=== PATIENT | female | born 1955 | race African-American/Black ===

== ENCOUNTER 2023-11-21 09:28 | Day surgery (SDC) | payer OTHER, MEDICARE ==
[2023-11-17 11:07] VITALS: BMI 24.2
[2023-11-21 11:51] VITALS: RESP 16; TEMP 97.8
[2023-11-21 12:26] VITALS: BP 145/81; PULSE 57
== END 2023-11-21 12:20 | disposition home or self-care (01) ==
LOC: FASU-ENDO 09:28
PROVIDERS: ATTEND Internal Medicine Gastroenterology
PROC: 0DB48ZX Excision of Esophagogastric Junction, Via Natural or Artificial Opening Endoscopic, Diagnostic (ICD-10-PCS; 2023-11-21)
PROC: 0DB68ZX Excision of Stomach, Via Natural or Artificial Opening Endoscopic, Diagnostic (ICD-10-PCS; 2023-11-21)
PROC: 0DJD8ZZ Inspection of Lower Intestinal Tract, Via Natural or Artificial Opening Endoscopic (ICD-10-PCS; principal; 2023-11-21 11:07)
DX: Z12.11 Encounter for screening for malignant neoplasm of colon (principal); K31.7 Polyp of stomach and duodenum; K29.50 Unspecified chronic gastritis without bleeding; B96.81 Helicobacter pylori [H. pylori] as the cause of diseases classified elsewhere
CPT/HCPCS: 43239; G0105; 88305-TC; 88341-TC; 88342-TC